=== PATIENT | male | born 1935 | race Hispanic/Latino ===

== ENCOUNTER → 2020-11-07 | Outpatient (CLI) | payer MEDICARE ==
[~2020-11-07] MED LIST: ACET-66 PO; AMLO-258 PO; FISH1CAP49 PO; LANS30CA55 PO; LISI40TA9 PO; RANI-662 PO; ROSU10TA22 PO
== END | disposition home or self-care (01) ==
LOC: SHCH 12:56
PROVIDERS: ATTEND Internal Medicine Cardiovascular Disease
DX: I49.3 Ventricular premature depolarization (principal)
CPT/HCPCS: 93306; 93356

== ENCOUNTER → 2024-09-09 | Outpatient (CLI) | payer MEDICARE ==
--- NOTE | 2024-09-09 15:43 | HMCIMG ---
US RENAL SONOGRAM HISTORY: [Bladder COMPARISON: None TECHNIQUE: Renal and bladder ultrasound study was performed. FINDINGS: The right kidney measures 9 x 4.7 x 4.3 cm. Right midpole renal cyst is seen measuring 1.8 x 1.3 x 1 cm. The left kidney measures 9.7 x 4.4 x 4.4 cm. There is left renal cyst measuring 2 x 2 0.7 x 2 cm. No evidence of hydronephrosis is seen of either kidney. Both kidneys are seen. Bladder is moderately distended. Bladder wall measures 3 mm. Prevoid bladder volume is 347 cc. Post void bladder volume is 8 cc. IMPRESSION: 1. No hydronephrosis is seen. Bilateral simple renal cysts
== END | disposition home or self-care (01) ==
LOC: RAH 09:58
PROVIDERS: ATTEND Urology
DX: N28.1 Cyst of kidney, acquired (principal); N32.89 Other specified disorders of bladder; N32.81 Overactive bladder
CPT/HCPCS: 76770